=== PATIENT | male | born 1950 | race Caucasian/White ===

== ENCOUNTER 2019-09-01 15:52 | Emergency (ER) | payer OTHER, MEDICARE ==
[~2019-09-01] VITALS: Ht 180.3 cm; Wt 117.9 kg
[2019-09-01] MEDS ORDERED: BETIMOL5 M1 OPTH (16:24)
--- NOTE | 2019-09-01 18:03 | EKG ---
[facility] [address] [facility] [place], [place] [address] Signed Sinus tachycardia Left axis deviation Right bundle branch block Septal infarct , age undetermined Abnormal ECG No previous ECGs available Confirmed by FLACO TURNER MD ([id number] on 09/01/2019 6:03:52 PM Electronically Signed By: FLACO TURNER MD 09/01/19 1803 PATIENT NAME: AVINASH BALTAZAR Electrocardiogram DATE OF : 46 PHYSICIAN: FLACO TURNER MD REPORT #: [id number] REPORT IS CONFIDENTIAL AND NOT TO BE RELEASED WITHOUT AUTHORIZATION
== END 2019-09-01 20:43 | disposition short-term general hospital (02) ==
LOC: ED 15:52
DX: I26.99 Other pulmonary embolism without acute cor pulmonale (principal); Z88.8 Allergy status to other drugs, medicaments and biological substances; Z79.899 Other long term (current) drug therapy
CPT/HCPCS: 36415; 36600; 71045; 71260; 80053; 81001; 82803; 83735; 83880; 84484; 85025; 85379; 93005; 93010; 93970; 94640; 99285-25; J1644; Q9967